=== PATIENT | male | born 1955 ===

== ENCOUNTER 2018-04-22 15:45 | Emergency (ER) | payer OTHER ==
[2018-04-22 16:01] VITALS: RESP 20
[2018-04-22] MEDS ORDERED: Naproxen 550 mg Tab PO STA (16:14)
[2018-04-22] MEDS ORDERED: Naproxen 550 mg Tab PO ONE (16:22)
--- NOTE | 2018-04-22 16:48 | C.PDOC ---
History Of Present Illness 62-year-old male presents to the ED for evaluation of left-sided lower back pain that radiates down left leg since earlier today. Patient denies fever/ chills, abdominal pain, dysuria/hematuria, urinary/bowel incontinence, urinary retention, sensory changes, or recent injury/falls. Time Seen by Provider: 04/22/18 15:53 Chief Complaint (Nursing): Hip Pain History Per: Patient History/Exam Limitations: no limitations Onset/Duration Of Symptoms: Hrs Current Symptoms Are (Timing): Still Present Severity: Moderate Additional History Per: Patient Past Medical History Reviewed: Historical Data, Nursing Documentation, Vital Signs Vital Signs: Last Vital Signs Temp 98.7 F 04/22/18 16:49 Pulse 74 04/22/18 16:49 Resp 20 04/22/18 16:49 BP 118/73 04/22/18 16:49 Pulse Ox 96 04/22/18 18:16 - Medical History PMH: Back Problems, Hypercholesterolemia Surgical History: Cholecystectomy, Tonsillectomy Family History: States: No Known Family Hx - Social History Hx Tobacco Use: No Hx Alcohol Use: Yes Hx Substance Use: No - Immunization History Hx Tetanus Toxoid Vaccination: No Hx Influenza Vaccination: No Hx Pneumococcal Vaccination: No Review Of Systems Constitutional: Negative for: Fever, Chills Gastrointestinal: Negative for: Nausea, Vomiting, Abdominal Pain Genitourinary: Negative for: Dysuria, Incontinence, Hematuria Musculoskeletal: Positive for: Back Pain (left-sided, lower ), Leg Pain (left) Neurological: Negative for: Weakness, Numbness Physical Exam - Physical Exam Appears: Well, Non-toxic, No Acute Distress Skin: Normal Color, Warm, Dry, No Rash Eye(s): bilateral: Normal Inspection Oral Mucosa: Moist Neck: Supple Cardiovascular: Rhythm Regular Respiratory: Normal Breath Sounds, No Rales, No Rhonchi, No Wheezing Gastrointestinal/Abdominal: Normal Exam, Bowel Sounds, Soft, No Tenderness Back: No CVA Tenderness, No Vertebral Tenderness, Paraspinal Tenderness (left- sided, lumbar TTP) Extremity: Normal ROM, No Tenderness, Capillary Refill (< 2 sec all digits ) Neurological/Psych: Oriented x3, Normal Sensation Gait: Steady ED Course And Treatment O2 Sat by Pulse Oximetry: 96 (on RA) Pulse Ox Interpretation: Normal - Other Rad lumbar spine XR X-Ray: Interpreted by Me, Viewed By Me, Read By Radiologist Interpretation: PROCEDURE: Radiographs of the Lumbar Spine. HISTORY: low back pain. COMPARISON: No prior. FINDINGS: BONES: There is normal alignment of the lumbar vertebral bodies. There is normal lumbar lordosis. There is no acute fracture, spondylolysis or spondylolisthesis. Bone mineralization is normal. DISC SPACES: There is mild degenerative disc disease in the lower lumbar spine with anterior spurring, mild reduced disc heights and facet arthropathy, worse at L4-5. OTHER FINDINGS: Surgical clips in the right lower quadrant are likely related to prior appendectomy. Both sacroiliac joints are normal. No pathologic soft tissue calcifications. IMPRESSION: No acute fracture, spondylolysis or spondylolisthesis. Mild multilevel degenerative disc disease in the lower lumbar spine, worse at L4-5. Progress Note: Patient given PO Prednisone, PO Naprosyn, and PO Flexeril. Xrays of LS Spine ordered and reviewed. Reevaluation Time: 17:00 Reassessment Condition: Improved (On reassessment, patient is resting comfortably and pain has improved. He is ambulating normally in the ED. Rxs for prednisone, naprosyn and flexeril given. Patient instructed to follow up with PMD/clinic in 1-2 days. He understands he should return to ED if symptoms worsen.) Disposition Counseled Patient/Family Regarding: Studies Performed, Diagnosis, Need For Followup, Rx Given - Disposition Referrals: [facility] [Outside] Disposition: HOME/ ROUTINE Disposition Time: 17:00 Condition: STABLE Additional Instructions: FOLLOW UP WITH YOUR DOCTOR/CLINIC IN 1-2 DAYS USE MEDICATIONS DIRECTED RETURN TO EMERGENCY ROOM IF SYMPTOMS WORSEN SEGUIMIENTO CON GOMEZ MDICO / CLNICA EN 1-2 KULKARNI USE MEDICAMENTOS SEGN LO INDICADO REGRESE AL LESLIE DE EMERGENCIA SI LOS SNTOMAS EMPEORAN Prescriptions: Cyclobenzaprine [Flexeril] 10 mg PO BID PRN #15 tab PRN Reason: Muscle Spasm Naproxen 375 mg PO BID PRN #20 tablet PRN Reason: pain predniSONE [predniSONE Tab] 40 mg PO DAILY #8 tab Instructions: Low Back Pain (DC), Sciatica (DC) Forms: [facility] (Croatian) Print Language: MOHAWK - Clinical Impression Clinical Impression: Low back pain, Sciatica - Scribe Statement The provider has reviewed the documentation as recorded by the Scribe (Rima Mcnair) Provider Attestation: All medical record entries made by the Scribe were at my direction and personally dictated by me. I have reviewed the chart and agree that the record accurately reflects my personal performance of the history, physical exam, medical decision making, and the department course for this patient. I have also personally directed, reviewed, and agree with the discharge instructions and disposition.
[2018-04-22 16:56] VITALS: BP 118/73; PULSE 74; TEMP 98.7
--- NOTE | 2018-04-22 17:06 | RAD ---
PROCEDURE: Radiographs of the Lumbar Spine. HISTORY: low back pain COMPARISON: No prior. FINDINGS: BONES: There is normal alignment of the lumbar vertebral bodies. There is normal lumbar lordosis. There is no acute fracture, spondylolysis or spondylolisthesis. Bone mineralization is normal. DISC SPACES: There is mild degenerative disc disease in the lower lumbar spine with anterior spurring, mild reduced disc heights and facet arthropathy, worse at L4-5 OTHER FINDINGS: Surgical clips in the right lower quadrant are likely related to prior appendectomy. Both sacroiliac joints are normal. No pathologic soft tissue calcifications. IMPRESSION: No acute fracture, spondylolysis or spondylolisthesis. Mild multilevel degenerative disc disease in the lower lumbar spine, worse at L4-5.
[2018-04-22 17:37] VITALS: O2SAT 96
== END 2018-04-22 17:04 | disposition home or self-care (01) ==
LOC: C.ER 15:45
DX: M54.40 Lumbago with sciatica, unspecified side (principal)